=== PATIENT | female | born 1975 | race Asian ===

== ENCOUNTER 2023-06-13 15:00 | Outpatient (CLI) | payer BC | END 2023-06-13 15:01 | disposition home or self-care (01) | LOC: CSHMAMMO 15:00 | PROVIDERS: ATTEND Family Medicine | DX: Z12.31 Encounter for screening mammogram for malignant neoplasm of breast (principal); Z80.3 Family history of malignant neoplasm of breast | CPT/HCPCS: 77063; 77067 ==

== ENCOUNTER 2024-06-20 15:11 | Outpatient (CLI) | payer BC | END 2024-06-20 15:12 | disposition home or self-care (01) | LOC: CSHMAMMO 15:11 | PROVIDERS: ATTEND Family Medicine | DX: Z12.31 Encounter for screening mammogram for malignant neoplasm of breast (principal); Z80.3 Family history of malignant neoplasm of breast | CPT/HCPCS: 77063; 77067 ==

== ENCOUNTER 2025-06-25 15:13 | Outpatient (CLI) | payer BC | END 2025-06-25 15:14 | disposition home or self-care (01) | LOC: CSHMAMMO 15:13 | PROVIDERS: ATTEND Family Medicine | DX: Z12.31 Encounter for screening mammogram for malignant neoplasm of breast (principal); Z80.3 Family history of malignant neoplasm of breast | CPT/HCPCS: 77063; 77067 ==